=== PATIENT | female | born 1985 | race Asian ===

== ENCOUNTER 2017-05-17 16:30 | Inpatient (IN) | payer BC ==
[~2017-05-17] VITALS: Ht 162.6 cm; Wt 89.8 kg
[2017-05-17] MEDS ORDERED: OXYTOCIN/NORMAL SALINE 1,000 ML IV SCH (17:39)
[2017-05-17] MEDS ORDERED: LR 1,000 ML IV ONE (17:39)
[2017-05-17] MEDS ORDERED: LR 1,000 ML IV SCH (17:39)
[2017-05-17] MEDS ORDERED: AMPICILLIN SODIUM 2 GM in NS 100 ML IV ONE (17:45)
[2017-05-17] MEDS ORDERED: TERBUTALINE SULFATE 1 MG/ML VIAL SUBCUT ONE (17:45)
[2017-05-17] MEDS ORDERED: NALBUPHINE HCL 10 MG/ML AMP IVP PRN (17:45)
[2017-05-17] MEDS ORDERED: AMPICILLIN SODIUM 2 GM VIAL ONE (17:57)
[2017-05-17 18:00] LABS: BASOPHILS % (AUTO) 0.5 % (0.0-2.0); EOSINOPHILS # (AUTO) 0.2 K/uL (0.0-0.4); EOSINOPHILS % (AUTO) 1.7 % (0.0-4.0); HEMATOCRIT 39.8 % (36-48); HEMOGLOBIN 13.1 g/dL (12.0-16.0); LYMPHOCYTES # (AUTO) 1.5 K/uL (1.0-5.5); LYMPHOCYTES % (AUTO) 15.6 % (20.5-51.5); MEAN CORPUSCULAR HEMOGLOBIN 32 pg (27-31); MEAN CORPUSCULAR HGB CONC 33 % (32-36); MEAN CORPUSCULAR VOLUME 96 fL (79.0-98.0); MONOCYTES # (AUTO) 0.8 K/uL (0.0-1.0); MONOCYTES % (AUTO) 8.1 % (1.7-9.3); NEUTROPHILS # (AUTO) 7.2 K/uL (1.8-7.7); NEUTROPHILS % (AUTO) 74.1 % (40.0-70.0); PLATELET COUNT (AUTO) 338 K/uL (130-430); RED BLOOD CELL COUNT(AUTO) 4.17 MIL/uL (4.2-6.2); RED CELL DISTRIBUTION WIDTH 12.8 % (9.0-15.0); WHITE BLOOD COUNT (AUTO) 9.7 K/uL (4.8-10.8)
[2017-05-17 20:30] VITALS: BP_SYST 129
[2017-05-17] MEDS ORDERED: AMPICILLIN SODIUM 1 GM VIAL ONE (22:31)
[2017-05-17] MEDS: AMPICILLIN SODIUM 1 GM in NS 50 ML IV SCH (22:45)
[2017-05-18] MEDS ORDERED: AMPICILLIN SODIUM 1 GM VIAL ONE (02:22)
[2017-05-18] MEDS: AMPICILLIN SODIUM 1 GM in NS 50 ML IV SCH (02:38)
[2017-05-18] MEDS ORDERED: OXYTOCIN/NORMAL SALINE 1,000 ML IV ONE (09:31)
[2017-05-18] MEDS ORDERED: SENNOSIDES/DOCUSATE SODIUM 1 TAB TABLET(SENOKOT-S) PO PRN (09:45)
[2017-05-18] MEDS ORDERED: DOCUSATE SODIUM 100 MG CAPSULE PO PRN (09:45)
[2017-05-18] MEDS ORDERED: GLYCERIN/WITCH HAZEL (TUCKS PADS) TP PRN (09:45)
[2017-05-18] MEDS ORDERED: DERMOPLAST SPRAY TP PRN (09:45)
[2017-05-18] MEDS: IBUPROFEN 600 MG TABLET PO SCH ×3 (09:50→23:54)
[2017-05-19] MEDS: IBUPROFEN 600 MG TABLET PO SCH ×4 (05:49→23:53)
[2017-05-19 06:56] LABS: HEMATOCRIT 27.9 % (36-48); HEMOGLOBIN 9.3 g/dL (12.0-16.0)
[2017-05-19] MEDS ORDERED: LIDOCAINE PF 1% 30ML(POUR BTL) INJ ONE (16:39)
[2017-05-19] MEDS ORDERED: MINERAL OIL 30 ML UDC PO ONE (16:39)
[2017-05-20] MEDS: IBUPROFEN 600 MG TABLET PO SCH ×3 (12:32→23:26)
== END 2017-05-20 23:35 | disposition home or self-care (01) | DRG 775 ==
LOC: SPU 16:30
PROVIDERS: ADMIT Specialist; ATTEND Specialist
PROC: 0DQR0ZZ Repair Anal Sphincter, Open Approach (ICD-10-PCS; principal; 2017-05-17)
PROC: 10E0XZZ Delivery of Products of Conception, External Approach (ICD-10-PCS; 2017-05-17)
DX: O69.81X0 Labor and delivery complicated by cord around neck, without compression, not applicable or unspecified (principal); O70.20 Third degree perineal laceration during delivery, unspecified; Z37.0 Single live birth; Z3A.40 40 weeks gestation of pregnancy
CPT/HCPCS: 36415; 85018-TC; 85025; 86592; 86886; 86900; 86901; J0290; J2001; J2590; J7030; J7120